=== PATIENT | male | born 1990 | race Two or more races ===

== ENCOUNTER 2023-05-25 12:27 | Emergency (ER) | payer OTHER ==
[~2023-05-25] VITALS: Ht 180.3 cm; Wt 102.1 kg
[2023-05-25] MEDS ORDERED: ATORVALIQ20 MG/5 ML (13:39)
[2023-05-25] MEDS ORDERED: MEDROLPACK PO (15:49)
[2023-05-25] MEDS ORDERED: SLEEP AID50 MG PO (15:49)
== END 2023-05-25 17:55 | disposition home or self-care (01) ==
LOC: ER 12:27
DX: T78.40XA Allergy, unspecified, initial encounter (principal); X58.XXXA Exposure to other specified factors, initial encounter